=== PATIENT | female | born 1955 | race Caucasian/White ===

== ENCOUNTER 2017-03-28 09:11 | Emergency (ER) | payer OTHER ==
[~2017-03-28] VITALS: Ht 160 cm; Wt 63.6 kg
[2017-03-28 09:27] VITALS: BP 157/92; PULSE 85; RESP 14; O2SAT 98
[2017-03-28] MEDS ORDERED: Tetracaine 0.5% 4 mL Ophthalmic Solution RIGHT_EYE ONE (10:45)
[2017-03-28 11:11] LABS: BASOPHILS % (AUTO) 0.7 % (0-3); MONOCYTES % (AUTO) 9.8 % (4-12); Mean Corpuscular Hemoglobin 32.3 pg (27.0-35.0); Mean Corpuscular Volume 94.3 fL (81-100); NEUTROPHILS % (AUTO) 63.6 % (40-74); Platelet Count 389 bil/L (150-400)
--- NOTE | 2017-03-28 11:26 | ED.REPORT ---
HPI-Eye Problem Date of Service March 28, 2017 ED Provider: Mesfin Knapp MD Patient is a 61 year old female without significant past medical history who presents to [facility] ER complaining of right eye pressure/pain that started 2 days ago. She reports acute onset without any accompanying symptoms. Yesterday she started having right fronto-temporal pain and tenderness around frontal and maxillary sinuses. She has tried Ibuprofen without relief. She denies chills, fever, eye discharge, eye erythema, vision loss, vision changes, nausea, vomiting. Nursing Notes Stated Complaint: HEAD PAIN/SENT OVER FROM CLINIC/TESTS Chief Complaint: Headache Nursing Notes Reviewed: Yes Allergies: Coded Allergies: No Known Allergies (Unverified , 03/28/17) General Time Seen by MD: 10:15 Chief Complaint Right eye affected, Pain Hx Obtained From: Patient Arrived By: Walk-in Onset Occurred: 2 days ago Symptom Duration: Constant Progression Since Onset: Unchanged Location: : Eye right Quality: Painful, Pressure Severity: Current: Moderate Severity: Maximum: Moderate Associated with: Reports: Forehead pain Pertinent Negative: Pt denies other symptoms Exacerbated by: Touching Pertinent Negative: Relieved by nothing Immunizations: All up to date Recent Healthcare: Recent doctor visit ([facility] in [facility], referred to ER) Past Medical History Past Medical History Notes: Insomnia Past Surgical History None reported Smoking History Never Smoker Social History Alcohol Use: "Social" Drug Use: Denies drug use Other Social History: Local resident Ambulatory Status Independent Review of Systems Basic Review of Systems Respiratory: No shortness of breath, No cough, No wheeze Cardiovascular: No chest pain, No palpitations GI: No abdominal pain, No nausea, No vomiting : No dysuria Musculoskeletal: No extremity swelling, Full range of motion Allergy / Immune: No allergy Psychiatric: Normal thought content Constitutional: Denies: Chills, Fatigue, Fever, Malaise Eyes: Reports: Eye pain right, Denies: Blurred right, Discharge right, Photophobia, Redness right, Visual loss right Ears / Nose / Throat: Denies: Ear drainage right, Sore throat, Toothache Skin: Denies Rash Neurologic: Reports: Headache, Denies: Dizziness, Focal weakness, Lightheaded Physical Exam Initial Vital Signs Vital Signs (First) Date Time Temp Pulse Resp B/P Pulse Ox O2 Delivery O2 Flow Rate FiO2 03/28/17 09:27 37.0 85 14 157/92 98 Room Air Initial VS: Reviewed, Vital signs normal Head / Eyes: Atraumatic, Normocephalic, PERRL, EOMI, No nystagmus, No periorbital redness, No periorbital swelling, No photophobia, No scleral icterus , Conjunctiva NL, Cornea clear, No corneal abrasion, Eyelids NL, Visual acuity NL Acuity / Tonometry: Positive: Intraocular pressure R (19 mm/Hg) General/Constitutional: Awake, Alert, No acute distress, Well appearing, Well developed, Well hydrated, Well nourished, Cooperative ENT: Atraumatic, Mucous membranes moist, Pharynx NL, Tympanic membs NL, Nose exam NL Sinus: Positive: Tender frontal R, Tender maxillary R Neck: Atraumatic, Supple, No adenopathy, No swelling, Non-tender Respiratory / Chest: Breath sounds = bilat, No respiratory distress, No wheezing Cardiovascular: Heart rate NL, Regular rhythm, No murmurs Abdomen: Atraumatic, Soft, Non-tender Upper Extremity / MS: Full range of motion, Vascular intact Lower Extremity / Pelvis / MS: Vascular intact, No edema Psychiatric: Affect NL, Mood NL Interpretation & Diagnostics Lab Results Interpretation Result Diagram: 03/28/17 1102 03/28/17 1102 Test 03/28/17 11:02 White Blood Count 7.3th/mm3 (3.8-10.1) Red Blood Count 4.70mil/mm3 (3.90-5.20) Hemoglobin 15.2g/dL (12.0-15.6) Hematocrit 44.3% (35.0-46.0) Mean Corpuscular Volume 94.3fL (81-100) Mean Corpuscular Hemoglobin 32.3pg (27.0-35.0) Mean Corpuscular Hemoglobin Concent 34.3% (32.0-37.0) Red Cell Distribution Width 13.0% (12.3-15.4) Platelet Count 389bil/L (150-400) Neutrophils (%) (Auto) 63.6% (40-74) Lymphocytes (%) (Auto) 24.8% (14-46) Monocytes (%) (Auto) 9.8% (4-12) Eosinophils (%) (Auto) 1.0% (0-5) Basophils (%) (Auto) 0.7% (0-3) Erythrocyte Sedimentation Rate 1mm/hr (0-40) Sodium Level 145mEq/L (134-144) Potassium Level 4.6mEq/L (3.5-5.2) Chloride Level 106mEq/L (97-108) Carbon Dioxide Level 25mmol/L (18-29) Blood Urea Nitrogen 11mg/dL (8-27) Creatinine 0.83mg/dL (0.57-1.00) Estimat Glomerular Filtration Rate 100mL/min (>59) Glucose Level 95mg/dL (60-99) Calcium Level 10.0mg/dL (8.5-10.1) Total Bilirubin 0.3mg/dL (0.0-1.2) Aspartate Amino Transf (AST/SGOT) 24U/L (0-50) Alanine Aminotransferase (ALT/SGPT) 23U/L (0-32) Alkaline Phosphatase 101U/L (25-165) C-Reactive Protein 0.2mg/dL (0.0-0.5) Total Protein 7.5g/dL (6.4-8.4) Albumin 4.7g/dL (3.4-5.0) Lab values outside NL range: no clinical significance. Procedures Slit Lamp Exam Time: 11:00 Procedure Performed by: ED physician, ED resident Which Eye: Right Dilating Agent & Anesthesia: Anesthesia: Tetracaine Eyelid / Conjunctiva / Sclera: Eyelid(s) normal, Tear film clear, Conjunctiva normal, Sclera normal Cornea/Ant Chamber/Iris/Lens: Cornea normal, Ant chamber normal, Iris round, Lens normal Re-Eval/Medical Decision Med Decision/Clinical Course In summary, this is a 61 year old female who presented to with right eye pain/pressure for 2 days. Differential diagnosis includes but not limited to giant cell arthritis, cluster headache, sinusitis, acute angle closure glaucoma, central retinal occlusion. Slit lamp exam revealed no abnormalities, anterior chamber pressure on tonometer 19 mm/Hg. CBC, CMP within normal limits. ESR normal. Patient received Ibuprofen, 600 mg in ER. At this point, we believe she does not have a medical emergency condition. She will be disharged home with instructions to follow up with PCP and return to ER if symptoms worsen. Diagnosis Appears: Non-critical Counseled Regarding: Diagnosis, Lab results, Need for follow-up, When/why to return to ED Discharge & Departure Shift Change Sign-Out Response to Therapy: Improved Primary Impression: Pain, eye, right Additional Impression: Headache Headache type: cluster Headache chronicity pattern: unspecified pattern Intractability: not intractable Qualified Code: G44.009 - Cluster headache syndrome, unspecified, not intractable Disposition: Home Discharge Condition Condition: Stable Additional Instructions: Thank you for seeking care at emergency room today. All the tests and lab work are reassuring! You do not have life threatening conditions. Here are the differential diagnosis we discussed today. 1. Eye pain, right 2. Headache, unspecified type 3. Sinusitis Please take Ibuprofen for pain as needed, you can use nasal saline spray and antihistamines for pressure relief. Please call you PCP and make a follow up appointment. Return to emergency room immediately if you develop new symptoms such as vision loss, severe headache, fever, nausea, vomiting, etc. Thank you for letting us partake in your care today. Referrals: Baljinder Corona MD (PCP) EDSupervising Provider for APC: Mesfin Knapp MD Attending Statement The patient was seen and examined together with Dr. Fletcher on 03/28/17 and I agree with the history, exam and plan as outlined in the note above. copies to: Baljinder Corona MDLynn Sabra ROJO March 28, 2017 11:26 Mesfin Knapp MD March 28, 2017 16:28
[2017-03-28 11:40] LABS: ERYTHROCYTE SEDIMENTATION RATE 1 mm/hr (0-40)
[2017-03-28 12:29] VITALS: BP 129/68; PULSE 72; RESP 17; O2SAT 99
== END 2017-03-28 12:30 | disposition home or self-care (01) ==
LOC: SED 09:11
DX: H57.11 Ocular pain, right eye (principal); G44.009 Cluster headache syndrome, unspecified, not intractable